=== PATIENT | male | born 1990 | race Hispanic/Latino ===

== ENCOUNTER 2024-03-20 23:30 | Emergency (ER) | payer OTHER ==
[2024-03-20] MEDS ORDERED: LIDOCAINE 1% 20 ML MDV ONE (23:58)
[2024-03-20] MEDS ORDERED: ONDANSETRON 4 MG (ODT) TAB ONE (23:58)
[2024-03-20] MEDS ORDERED: KETOROLAC 30 MG/ML INJ ONE (23:58)
[2024-03-20] MEDS ORDERED: HYDROCODONE/APAP 10/325 TAB ONE (23:59)
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
[2024-03-21 06:49] VITALS: TEMP 98.4; O2SAT 99
[2024-03-21 06:50] VITALS: BP 139/89
== END 2024-03-21 02:19 ==
LOC: ER 23:30
DX: S01.511A Laceration without foreign body of lip, initial encounter (principal); Y04.2XXA Assault by strike against or bumped into by another person, initial encounter; Y92.149 Unspecified place in prison as the place of occurrence of the external cause
CPT/HCPCS: 96372; 99284; 12014; Q0162; J2003